=== PATIENT | female | born 1945 | race Caucasian/White ===

== ENCOUNTER → 2021-07-17 | Outpatient (CLI) | payer MEDICARE | LOC: HEART 5 09:28 | DX: I11.9 Hypertensive heart disease without heart failure (principal) | CPT/HCPCS: 93306 ==

== ENCOUNTER → 2022-04-24 | Outpatient (CLI) | payer MEDICARE | LOC: CT 12:59 | DX: I71.4 Abdominal aortic aneurysm, without rupture (principal) | CPT/HCPCS: 36415; 82565; 84520; Q9965 ==